=== PATIENT | female | born 1965 | race Caucasian/White ===

== ENCOUNTER 2017-06-04 11:58 | Inpatient (IN) ==
[2017-06-04 12:51] LABS: Immature Granulocytes % 0.3 %; Immature Granulocytes Absolute 0.04 #; Monocytes % 6.2 % (1.7-12.7); Red Cell Distribution Width 12.4 % (9.3-17.3)
[2017-06-04 12:55] LABS: Apearance,Urine CLEAR (Clear); Bilirubin,Urine Negative (Negative); Blood, Urine Negative (Negative); Glucose,Urine (UA) >=500 mg/dL (Negative); Hyaline Casts,Urine 1 /LPF (0-3); Ketones,Urine Negative (Negative); Mucus,Urine Occasional /LPF (Occasional); Nitrite,Urine Negative (Negative); Protein,Urine Negative; RBC,Urine <1 /HPF (0-4); Squamous Epithelial Cell,Urine Occasional /HPF (0-10); Urine Color Yellow (Yellow); Urine Specific Gravity 1.035 (1.001-1.035); Urine Urobilinogen < 2.0 EU/DL (0.2-1.0); WBC,Urine 1 /HPF (0-6)
--- NOTE | 2017-06-04 13:00 | CT Report ---
History: Right-sided hemiparesis affecting the right side of the face and right upper extremity Date: 06/04/2017 Study: CT head without contrast Comparison exam: CT head September 21, [address] sections were obtained through the head without IV contrast. Total DLP measures 1134.1 mGy*cm. This CT exam was performed using one or more the following dose reduction techniques: Automated exposure control, adjustment of the MA and/or KV according to patient size, or use of iterative reconstruction technique. The ventricles are midline in position without evidence of hydrocephalus. There is no mass or parenchymal hemorrhage. There is no gross CT evidence of acute cortical stroke. There are areas of chronic lacunar infarction involving the right putamen and posterior aspect of the right internal capsule. There is also chronic lacunar infarction in the right frontal centrum semiovale. There is no extra-axial hematoma. There is no acute abnormality of the calvarium. The partially visualized paranasal sinuses and mastoid air cells are clear. There is mild distal carotid artery calcification. Impression: No parenchymal hemorrhage. Chronic ischemic changes. No definite acute process compared to the previous study PROCEDURE INTERPRETED AT [facility] DEPARTMENT OF RADIOLOGY Final Report Signed by: Dr. Fariha Gilbert
--- NOTE | 2017-06-04 13:04 | EKG Report ---
Stationary ECG Study [facility] ER Test Date: 06/04/2017 1:02:31 PM Pat Name: BRYAN WALKER Department: Room: Gender: F Kiln Remover: : 1965 Requested by: Param Hyatt Order Number: [id number] Reading MD: ORLANDO TAYLOR Intervals [place] Rate: 83 P: 27 AL: 125 QRS: 97 QRSD: 85 T: -13 QT: 370 QTc: 410 Interpretive Statements SINUS RHYTHM BORDERLINE RIGHT AXIS DEVIATION Electronically Signed On 06-05-17 07:42:05 CDT by ORLANDO TAYLOR [email or web address]
[2017-06-04 13:06] LABS: INR 0.9; PT Patient Result 9.9 SECS
[2017-06-04 13:07] LABS: Barbiturates Screen,Urine Negative (Negative); Benzodiazepines Screen,Urine Negative (Negative); Cannabinoid Screen,Urine Negative (Negative); Opiate Screen,Urine Positive (Negative); Phencyclidine Screen,Urine Negative (Negative)
[2017-06-04 13:11] LABS: Basophils # 0.1 10*3/uL (0.0-0.2); Basophils % 0.8 % (0.0-0.8); Eosinophils # 0.1 10*3/uL (0.0-0.87); Eosinophils % 1.1 % (0.00-10.9); Hematocrit 44.3 VOL% (35.7-47.0); Lymphocytes # 3.7 10*3/uL (1.4-4.0); Lymphocytes % 31.7 % (21.3-54.2); Mean Corpuscular HGB Conc 36.1 GM/DL (32-36); Mean Corpuscular Hemoglobin 31 PG (27-34); Mean Platelet Volume 11.2 FL (9.6-12.0); Monocytes # 0.7 10*3/uL (0.11-0.8); Neutrophils # 7.1 10*3/uL (1.4-7.4); Neutrophils % 59.9 % (38.7-73.9); Platelet Count 270 T/CUMM (130-400); Red Blood Count 5.15 MC/CUMM (3.8-5.5); White Blood Count 11.8 T/CUMM (4-12)
[2017-06-04 13:18] LABS: Alanine Aminotransferase 28 U/L (13-56); Albumin 3.9 G/DL (3.4-5.0); Alkaline Phosphatase 117 U/L (45-117); Aspartate Amino Transferase 12 U/L (0-37); Bilirubin,Total < 0.39 MG/DL (0.2-1.0); Blood Urea Nitrogen 14 MG/DL (7-18); Calcium 9.4 MG/DL (8.5-10.1); Glucose 282 MG/DL (74-106); Osmolality,Calculated 285.7 MOS/KG (273-304); Potassium 4.1 MMOL/L (3.5-5.1); Sodium 138 MMOL/L (136-145); Total Protein 7.7 G/DL (6.4-8.3)
--- NOTE | 2017-06-04 13:31 | XRay Report ---
History: Cardiomegaly. Hemiparesis. History of coronary artery disease and hypertension Date: 06/04/2017 Study: Chest x-ray PA and lateral Comparison exam: March 27, 2016 The cardiomediastinal silhouette and pulmonary vasculature are unremarkable. The lungs are clear except for some minor platelike scar or subsegmental atelectasis in the right infrahilar area. There is no pleural effusion. Osseous structures are unremarkable. Impression: Minimal platelike scar or subsegmental atelectasis right infrahilar area. Otherwise unchanged PROCEDURE INTERPRETED AT [facility] DEPARTMENT OF RADIOLOGY Final Report Signed by: Dr. Fariha Gilbert
[2017-06-04] MEDS ORDERED: HEPARIN DRIP 25,000 UNITS/500 ML PREMIX IV SCH (14:00)
[2017-06-04] MEDS ORDERED: GLUCAGON 1 MG VIAL IM PRN (14:01)
[2017-06-04] MEDS ORDERED: ONDANSETRON 4 MG/2 ML VIAL IV PRN (14:01)
[2017-06-04] MEDS ORDERED: ACETAMINOPHEN 325 MG TABLET PO PRN (14:01)
[2017-06-04] MEDS ORDERED: LABETALOL 20 MG/4 ML SYRINGE IV PRN (14:01)
[2017-06-04] MEDS ORDERED: DEXTROSE 50% 25 GM/50 ML SYRINGE IV PRN (14:01)
[2017-06-04] MEDS ORDERED: HEPARIN DRIP 25,000 UNITS/500 ML PREMIX IV ONE (14:02)
[2017-06-04] MEDS ORDERED: NITROGLYCERIN SL 0.4 MG TABLET SL PRN (14:09)
[2017-06-04] MEDS: HEPARIN DRIP 25,000 UNITS/500 ML PREMIX IV SCH (15:52)
--- NOTE | 2017-06-04 15:57 | Ultrasound Report ---
Exam:US carotid duplex BI Date:06/04/2017 2:06 PM Indication: Right-sided paresthesias Color Doppler, wave form analysis, and grayscale analysis of the cervical carotid arteries was performed. There is mild smooth plaque in either carotid bulb. Waveform analysis shows proper directional flow of the cervical carotid arteries. There is antegrade flow in either vertebral artery. The distal right ICA measures 4.6 mm diameter; the left measures 4.9 mm diameter. Right Side Flow velocities centimeters per second Common carotid artery: 116 Proximal ICA:69.0 Distal ICA:88.5 External carotid artery:96.4 Vertebral artery:97.7 ICA/CCA ratio:0.8 Left SIde Flow velocities centimeters per second Common carotid artery 99 Proximal ICA:74.1 Distal ICA:92.4 External carotid artery:75.4 Vertebral artery:96.3 ICA/CCA ratio:0.9 There is 0-15% diameter reduction narrowing of either internal carotid artery using indirect NASCET criteria. Ultrasound images were captured and archived. Impression: No hemodynamically significant internal carotid artery stenosis Today studies were performed utilizing indirect NASCET criteria PROCEDURE INTERPRETED AT [facility] DEPARTMENT OF RADIOLOGY Final Report Signed by: Dr. Fariha Gilbert
[2017-06-04] MEDS: SODIUM CHLORIDE 0.9% 1,000 ML IV SCH (17:21)
--- NOTE | 2017-06-04 18:00 | Internal Med History&Physical ---
Assessment and Plan (1) Right facial numbness Status: Acute Current Visit: Yes (2) Right hand weakness Status: Acute Current Visit: Yes (3) Stroke Status: Chronic Current Visit: Yes (4) Diabetes mellitus Status: Chronic Current Visit: Yes Qualifiers: Diabetes mellitus type: type 2 (5) Essential (primary) hypertension Status: Chronic Current Visit: Yes (6) Hyperlipidemia Status: Chronic Current Visit: Yes (7) H/O: CVA (cerebrovascular accident) Status: Chronic Current Visit: Yes History of Present Illness Chief complaint: acute facial numbness History of present illness: Ms. Hay is a 52 year old female patient of Dr. Yuri Durán with history of CAD/stenting, CVA with left sided weakness, HTN, DM, dyslipidemia, who presented to ER with acute onset of right facial numbess. She also had numbness to right hand. She will have MRI brain in the morning. CT brain did not reveal acute stroke, but small old lacunar infarcts. She denies pain at this time. Home Medications Medication Instructions Recorded Confirmed Type Aspirin Tab 325 mg PO DAILY tablet 09/23/15 06/04/17 Rx HYDROcodone/ACETAMIN 10-325 [[place] 1 tablet PO Q6H PRN #30 tablet 09/23/1506/04 Rx 10-325] Insulin Aspart [NovoLOG] 10 unit SUBCUT AC LUNCH PRN 03/27/16 06/04/17 History Insulin Glargine [Lantus] 50 unit SUBCUT BEDTIME 03/27/16 06/04/17 History Linagliptin/Metformin HCl 1 each PO BID 03/27/16 06/04/17 History [Jentadueto 2.5 mg-1000 mg Tab] Nitroglycerin Sl Tab [Nitrostat] 0.4 mg SL Q5M PRN #25 tablet 04/01/16 06/04/17 Rx Allergies Allergy/AdvReac Type Severity Reaction Status Date / Time No Known Allergies Allergy Verified 09/21/15 10:27 Medical,Surgical,& Family Hx - Medical History Cardio: History of: CAD, Hypertension Neurology: History of: Cerebrovascular Accident, TIA No history of: Seizures Endocrine: History of: Diabetes Mellitus (IDDM), Dyslipidemia Respiratory: History of: Respiratory Problems (smoker) No history of: COPD Musculoskeletal: History of: Degenerative Disk Disease, Musculoskeletal Problems (osteoarthritis) - Surgical History Cardiac Surgeries: Sugical HX of: Cardiac Catheterization (angioplasty) Reproductive Surgeries: Surgical HX of;: Section, Hysterectomy - Family History Family History: Reports;: Family Heart Disease, Family Stroke Denies;: Family Diabetes - Social History Smoking Status: Current every day smoker Frequency of Alcohol Use: None Type of Drug Use: None Marital Status: Lives With:: Spouse Functional capacity: independent ambulation - Constitutional Constitutional: Present: malaise - Cardiovascular Cardiovascular: Absent: chest pain with activity - Respiratory Respiratory: Absent: dyspnea, wheezing - Gastrointestinal Gastrointestinal: Absent: constipation, nausea - Neurological Neurological: Present: headache(s) - Endocrine Endocrine: Present: fatigue Exam - Constitutional Vitals: Period Temp Pulse Resp BP Sys/Hayes Pulse Ox Last 24 Hr 97.8 F-98.1 F 73-89 18-20 138-190/74-98 95-98 General appearance: no acute distress - Head Head exam: Present: normocephalic - Eye Eye exam: Present: EOMI - Respiratory Respiratory exam: Present: clear to auscultation bilaterally - Cardiovascular Cardiovascular exam: Present: regular rate and rhythm - GI/Abdominal GI/Abdominal exam: Present: soft. 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
[2017-06-04] MEDS: DOCUSATE SODIUM 100 MG CAPSULE PO SCH (22:42)
[2017-06-04] MEDS: INSULIN GLARGINE 100 UNIT/ML SUBCUT SCH (22:43)
[2017-06-04] MEDS: HEPARIN 5,000 UNIT/1 ML VIAL IV PRN (23:02)
[2017-06-05] MEDS ORDERED: DEXTROSE 50% 25 GM/50 ML VIAL IV PRN (00:59)
[2017-06-05] MEDS ORDERED: GLUCAGON 1 MG VIAL IM PRN (00:59)
[2017-06-05] MEDS: INSULIN REGULAR 100 UNIT/ML SUBCUT SCH ×4 (06:04→21:07)
[2017-06-05 06:25] LABS: Basophils # 0.1 10*3/uL (0.0-0.2); Basophils % 0.8 % (0.0-0.8); Eosinophils # 0.2 10*3/uL (0.0-0.87); Eosinophils % 1.6 % (0.00-10.9); Hematocrit 40.7 VOL% (35.7-47.0); Hemoglobin 14.9 GM/DL (12.0-16.0); Immature Granulocytes % 0.3 %; Immature Granulocytes Absolute 0.04 #; Lymphocytes # 4.4 10*3/uL (1.4-4.0); Lymphocytes % 35.4 % (21.3-54.2); Mean Corpuscular HGB Conc 36.6 GM/DL (32-36); Mean Corpuscular Hemoglobin 32 PG (27-34); Mean Corpuscular Volume 86.6 FL (87-102); Mean Platelet Volume 11.4 FL (9.6-12.0); Monocytes # 0.8 10*3/uL (0.11-0.8); Monocytes % 6.1 % (1.7-12.7); Neutrophils # 6.9 10*3/uL (1.4-7.4); Neutrophils % 55.8 % (38.7-73.9); Platelet Count 253 T/CUMM (130-400); Red Cell Distribution Width 12.3 % (9.3-17.3); White Blood Count 12.3 T/CUMM (4-12)
[2017-06-05] MEDS: SODIUM CHLORIDE 0.9% 1,000 ML IV SCH (07:01)
[2017-06-05 07:02] LABS: Calcium 8.5 MG/DL (8.5-10.1); Osmolality,Calculated 289.8 MOS/KG (273-304); Potassium 4.4 MMOL/L (3.5-5.1)
[2017-06-05 07:07] LABS: Risk Ratio 7.77; VLDL CHOLESTEROL 134.6 MG/DL
[2017-06-05] MEDS: HEPARIN 5,000 UNIT/1 ML VIAL IV PRN ×2 (07:17→14:38)
[2017-06-05] MEDS: amLODIPine 5 MG TABLET PO SCH (09:05)
[2017-06-05] MEDS: DOCUSATE SODIUM 100 MG CAPSULE PO SCH ×2 (09:05→21:07)
[2017-06-05] MEDS: ASPIRIN 325 MG TABLET PO SCH (09:06)
[2017-06-05] MEDS: PANTOPRAZOLE 40 MG TABLET PO SCH (09:06)
--- NOTE | 2017-06-05 10:43 | Magnetic Resonance Report ---
Exam: MR head/brain wo con Date: 06/05/2017 2:06 PM Comparison: 09/21/2015, CT brain 06/04/2017 Indication: Right-sided paresthesias, history of CVA, headache Technique:[Multiple acquisitions were obtained including sagittal T1, coronal T2, and axial ADC, diffusion, FLAIR, T2, GRE, and T1 scans without contrast only. Scans were obtained on a 1.5 Jo Ann magnet.] Findings: The ventricles remain normal in size with no midline displacement. Empty sella with the cerebellar tonsils are normal in their location. 7 mm area of restricted diffusion in the left midbrain. Chronic right basal ganglia/thalamic infarcts. Progressive scattered FLAIR/T2 hyperintensities. Additional enlarged perivascular spaces which represent a normal variant. No acute findings in the orbits, temporal bones, or manzanita of [place]. 6 mm retention cyst in the floor of the right maxillary sinus. Impression: 7 mm probable acute ischemic infarction in the left midbrain with chronic right basal ganglia/thalamic infarcts. However restricted diffusion can also be seen with demyelinating disease, infectious processes, etc. Additional progressive moderate microvascular disease. The T2 hyperintensities can also be associated with demyelinating disease, vasculitis, viral illness, etc. Empty sella. 6 mm retention cyst in the floor the right maxillary sinus. Findings were discussed with patient's nurse, Leslie at 10:35 AM on 06/05/2017 Critical test results PROCEDURE INTERPRETED AT [facility] DEPARTMENT OF RADIOLOGY Final Report Signed by: Dr. Amanda Sullivan
[2017-06-05] MEDS: HEPARIN DRIP 25,000 UNITS/500 ML PREMIX IV SCH (14:49)
--- NOTE | 2017-06-05 15:09 | Neurology Consult Note ---
History of Present Illness History of present illness: 52 years old right-handed white lady with past medical history significant for hypertension, diabetes, hyperlipidemia, smoking admitted to the hospital with complaints of right facial and upper extremity numbness and tingling. Patient reported that she woke up Monday night Monday morning around 2 AM with the symptoms. Symptoms still persist. She denies any speech difficulties, walking difficulties, vision difficulties, swallowing problems. She had a history of a stroke which affected her left body in 2014 without any residual problem. CT scan of the brain reveals no acute abnormalities. MRI of the brain revealed acute infarct in the left midbrain. Carotid ultrasound is unremarkable. Lipid profile reveals triglycerides of 673 and cholesterol of 241. She was started on anticholesterol medication in 2014 after her 41 stroke but she quit taking it for some reason. Home Medications Medication Instructions Recorded Confirmed Type Aspirin Tab 325 mg PO DAILY tablet 09/23/15 06/04/17 Rx HYDROcodone/ACETAMIN 10-325 [[place] 1 tablet PO Q6H PRN #30 tablet 09/23/1506/04 Rx 10-325] Insulin Aspart [NovoLOG] 10 unit SUBCUT AC LUNCH PRN 03/27/16 06/04/17 History Insulin Glargine [Lantus] 50 unit SUBCUT BEDTIME 03/27/16 06/04/17 History Linagliptin/Metformin HCl 1 each PO BID 03/27/16 06/04/17 History [Jentadueto 2.5 mg-1000 mg Tab] Nitroglycerin Sl Tab [Nitrostat] 0.4 mg SL Q5M PRN #25 tablet 04/01/16 06/04/17 Rx Allergies Allergy/AdvReac Type Severity Reaction Status Date / Time No Known Allergies Allergy Verified 09/21/15 10:27 12 point system: reviewed and no additional remarkable complaints except as stated Medical,Surgical,& Family Hx - Medical History Cardio: History of: CAD, Hypertension Neurology: History of: Cerebrovascular Accident, TIA No history of: Seizures Endocrine: History of: Diabetes Mellitus (IDDM), Dyslipidemia Respiratory: History of: Respiratory Problems (smoker) No history of: COPD Musculoskeletal: History of: Degenerative Disk Disease, Musculoskeletal Problems (osteoarthritis) - Surgical History Cardiac Surgeries: Sugical HX of: Cardiac Catheterization (angioplasty) Reproductive Surgeries: Surgical HX of;: Section, Hysterectomy - Family History Family History: Reports;: Family Heart Disease, Family Stroke Denies;: Family Diabetes - Social History Smoking Status: Current every day smoker Frequency of Alcohol Use: None Type of Drug Use: None Exam - Constitutional Vitals: Period Temp Pulse Resp BP Sys/Hayes Pulse Ox Last 24 Hr 96.0 F-98.3 F 75-82 18-20 148-189/66-85 94-97 Exam: GENERAL: Patient is in no acute distress. NECK: Neck is supple. There is no JVD. No carotid bruits present. No thyroid masses. CVS: First and second heart sounds are normal. There is no S3 present. Regular rate and rhythm. RESPIRATORY: Lungs are clear to auscultation without any rales or rhonchi. ABDOMEN: Soft and non-tender. Bowel sounds are present. There is no hepatosplenomegaly. EXT: There is no palpable edema. Peripheral pulses are present. Skin: No rashes Central Nervous system: General: Alert, awake and Oriented x 3 Speech: Fluent Comprehension: Intact and normal Facial expressions: Normal Cranial Nerves: CN1/Olfactory: Normal CN II/ Optic: Normal, Visual Bartlett unreliable CN III, and : AUGUSTO & EOMI CN V: Normal & intact CN VII: face is symmetric CNVIII: Normal CN XI/X/XI/XII: Intact and Normal Motor: Bulk and Tone is normal. Strength in the right 5/5 Strength in the left 5/5 Sensory: Decreased for all the modalities of PP, LT and temp sense in the right face and arm Reflexes: 1+ and symmetrical Cerebellar function: Normal finger to nose and heel to cabello testing. Toes: Equivocal Gait: Normal heel to heel and toe to toe and tandem walk. Results - Labs CBC & BMP: 06/05/17 05:49 06/05/17 05:49 Assessment and Plan (1) Diabetes mellitus Status: Chronic Assessment and plan: Continue Accu-Cheks with the sliding-scale coverage Defer treatment to PCP Current Visit: Yes Qualifiers: Diabetes mellitus type: type 2 (2) Essential (primary) hypertension Status: Chronic Assessment and plan: Change Norvasc to 10 mg p.o. daily Current Visit: Yes (3) Hyperlipidemia Status: Chronic Assessment and plan: Add Lipitor 80 mg p.o. daily Current Visit: Yes (4) Acute CVA (cerebrovascular accident) Status: Acute Assessment and plan: Continue aspirin Add Plavix 75 mg daily Okay to go home when okay with PCP Current Visit: No (5) Smoker Status: Acute Assessment and plan: Counseled her regarding cessation of smoking. Current Visit: No Specialty Discharge - Follow Up or Referrals Follow up with: Nicko Miner MD [Physician] - 1 Month
--- NOTE | 2017-06-05 17:52 | ECHO Report ---
Augustina Hay Exam Date: 06/05/2017 07:40 Referring Physician: Technologist: Greta Tamayo Age: 52 Ht (in): 65 Wt (lb): 194 Gender: F Exam Location: [facility] Echo Indications: CVA, HTN, hyperlipidemia, RT. facial numbness, Rt. hand weakness BP: 148 / 66 HR: 78 Rhythm: Sinus Technical Quality: Fair IMPRESSIONS 1. This is somewhat limited echocardiogram visualization. 2. Left ventricle is normal size systolic function with ejection fraction 55-60%. 3. Other cardiac chambers are normal size. 4. There is no gross intracardiac mass or thrombus seen but this is somewhat limited study. 5. Valvular structures are overall unremarkable. MEASUREMENTS (Male / Female) Normal Values 2D ECHO LV Diastolic Diameter PLAX 4.7 cm 4.2 - 5.9 / 3.9 - 5.3 cm LV Systolic Diameter PLAX 3.1 cm LV Fractional Shortening PLAX 33.8 % IVS Diastolic Thickness 0.9 cm 0.6 - 1.0 / 0.6 - 0.9 cm LVPW Diastolic Thickness 1.0 cm 0.6 - 1.0 / 0.6 - 0.9 cm Aortic Root Diameter 2.3 cm LA Systolic Diameter LX 3.4 cm 3.0 - 4.0 / 2.7 - 3.8 cm DOPPLER TR Peak Velocity 228.0 cm/s TR Peak Gradient 20.8 mmHg FINDINGS Left Ventricle Normal left ventricular cavity size. Left ventricular ejection fraction is estimated at 55-60 %. Right Ventricle Normal right ventricular size. Right Atrium Normal right atrial size. Left Atrium Normal left atrial size. Mitral Valve Morphologically normal mitral valve. Aortic Valve The aortic valve is trileaflet and has normal motion. Tricuspid Valve Morphologically normal tricuspid valve. Trace tricuspid valve regurgitation. Tricuspid regurgitation velocities suggest a PAP of 20.8 mmHg + RAP. Pulmonic Valve Morphologically normal pulmonic valve. Pericardium No pericardial effusion. Aorta Normal size aortic root and proximal ascending aorta. Main Metz MD (Electronically Signed) Final Date: 05 June 2017 17:51
[2017-06-05] MEDS: JENTADUETO PO SCH (19:05)
[2017-06-05] MEDS ORDERED: ATORVASTATIN 80 MG TABLET PO SCH (21:00)
[2017-06-05] MEDS: INSULIN GLARGINE 100 UNIT/ML SUBCUT SCH (21:07)
--- NOTE | 2017-06-06 07:23 | Family Practice Progress Note ---
Family Practice - PN: Subj Interval history: Patient seen today. She is very alert. We have ordered an MRI which is pending. Still having numbness on the right side of her face and the distal tips of her right digits. I discussed with her the fact that she needed to stop smoking and she did voice agreement to this. Otherwise we are waiting on results and evaluation by neurology. Exam (Progress Note) - Constitutional Vitals: Period Temp Pulse Resp BP Sys/Hayes Pulse Ox Last 24 Hr 96.0 F-97.7 F 80-84 16-20 151-181/72-83 95-97 Exam: Stable hemodynamically. HEENT pupils equal reactive to light extraocular movements are intact neck is supple trachea midline. She has numbness on the right side of her head and face Cardiovascular rate regular no gallop or rub Lungs clear Abdomen soft nondistended Extremities a little tingling in her right digits otherwise normal Results - Labs CBC & BMP: 06/05/17 05:49 06/05/17 05:49 Assessment and Plan (1) Right facial numbness Status: Acute Assessment and plan: 06/05/2017: We are getting an MRI today and will have neurology evaluate Current Visit: Yes (2) H/O: CVA (cerebrovascular accident) Status: Chronic Assessment and plan: 06/05/2017: Evaluation by neurology and will follow guidelines Current Visit: Yes (3) Hyperlipidemia Status: Chronic Assessment and plan: Mars 717: Plan to address hyperlipidemia with medication Current Visit: Yes (4) Stroke Status: Chronic Assessment and plan: 06/05/2017: No residual symptoms except for the numbness in the right face. Will continue current regimen Current Visit: Yes Quality Measures - Stroke Onset of Symptoms Date: 06/04/17 Onset of Symptoms Time: 02:00 Specialty Discharge - Follow Up or Referrals Follow up with: Nicko Miner MD [Physician] - 1 Month
[2017-06-06] MEDS: INSULIN REGULAR 100 UNIT/ML SUBCUT SCH ×2 (08:02→11:30)
[2017-06-06] MEDS: JENTADUETO PO SCH ×3 (08:03→09:38)
--- NOTE | 2017-06-06 08:51 | Family Practice Progress Note ---
Family Practice - PN: Subj Interval history: 06/05/2017: Patient seen today. She is very alert. We have ordered an MRI which is pending. Still having numbness on the right side of her face and the distal tips of her right digits. I discussed with her the fact that she needed to stop smoking and she did voice agreement to this. Otherwise we are waiting on results and evaluation by neurology. 06/06/2017: Patient seen. Doing quite well except her blood sugars are up however she did not get Lantus last night. We did up her sliding scale. We will continue her Lantus and she did get a dose this morning. (note: Patient was eating sugar with her diet this morning as well as drinking regular orange juice). We discussed her watching her diabetes very closely when we discharge her. In addition she states that she definitely wants to stop smoking and will go to put her on Chantix, she is taking this before with success. Otherwise we will manage her stroke with the recommendations by neurology in which she started her on Xarelto. We will continue her medications for hypercholesterolemia which is lovastatin Exam (Progress Note) - Constitutional Vitals: Period Temp Pulse Resp BP Sys/Hayes Pulse Ox Last 24 Hr 96.9 F-97.7 F 80-84 16-20 149-181/72-83 95-97 Exam: Stable hemodynamically. HEENT pupils equal reactive to light extraocular movements are intact neck is supple trachea midline. She continues to have numbness on the right side of her head and face Cardiovascular rate regular no gallop or rub Lungs clear Abdomen soft nondistended Extremities a little tingling in her right digits otherwise normal Results - Labs CBC & BMP: 06/05/17 05:49 06/05/17 05:49 Assessment and Plan (1) Right facial numbness Status: Acute Assessment and plan: 06/05/2017: We are getting an MRI today and will have neurology evaluate Current Visit: Yes (2) H/O: CVA (cerebrovascular accident) Status: Chronic Assessment and plan: 06/05/2017: Evaluation by neurology and will follow guidelines Current Visit: Yes (3) Hyperlipidemia Status: Chronic Assessment and plan: Mars 717: Plan to address hyperlipidemia with medication Current Visit: Yes (4) Stroke Status: Chronic Assessment and plan: 06/05/2017: No residual symptoms except for the numbness in the right face. Will continue current regimen Current Visit: Yes Quality Measures - Stroke Onset of Symptoms Date: 06/04/17 Onset of Symptoms Time: 02:00 Specialty Discharge - Follow Up or Referrals Follow up with: Nicko Miner MD [Physician] - 1 Month
[2017-06-06] MEDS ORDERED: CLOPIDOGREL 75 MG TABLET PO SCH (09:00)
--- NOTE | 2017-06-06 09:08 | Discharge Summary ---
Hospital Course - Hospital Course Hospital Course: Patient seen today. She is doing well. Still has the numbness right side of her face. We are putting her on Plavix as well as were going continue on a baby aspirin. She is stable hemodynamically. We discussed her stopping smoking , we are going to put her on Chantix for this and she is to come by the clinic to get a prescription. We did continue her on her current medicines of Lantus and other p.o. anti-hyperglycemics. We will put these on accordingly. Otherwise we are going to give her a work excuse which she can come by here and get as well. I am going to see her back in 1 week - Time spent with patient Time with patient DS: Greater than 30 minutes Diagnosis - Discharge Diagnosis (1) Right facial numbness Status: Acute (2) H/O: CVA (cerebrovascular accident) Status: Chronic (3) Hyperlipidemia Status: Chronic (4) Stroke Status: Chronic Specialty Discharge - Follow Up or Referrals Follow up with: Nicko Miner MD [Physician] - 1 Month Discharge Plan - Discharge Data Disposition: Disch To Home/Self Care Condition at Discharge: Stable Discharge Diet: diabetic diet, heart healthy Activity: resume usual activities as tolerated, increase activity as tolerated Hygiene: no restrictions Weight Bearing at Discharge: weight bear as tolerated Driving: no restrictions Contact your physician if you experience:: Shortness of breath, Bleeding - Discharge Medications New Aspirin Chew Tab 81 mg PO DAILY #30 tablet Clopidogrel [Plavix] 75 mg PO DAILY #90 tablet Varenicline Tartrate [Chantix Starter Month Pack] 1 each PO DIRECTED #1 tab.ds.pk amLODIPine [Norvasc] 5 mg PO DAILY #90 tablet Atorvastatin [Lipitor] 80 mg PO BEDTIME #30 tablet Continue Insulin Glargine [Lantus] 50 unit SUBCUT BEDTIME Linagliptin/Metformin HCl [Jentadueto 2.5 mg-1000 mg Tab] 1 each PO BID Insulin Aspart [NovoLOG] 10 unit SUBCUT AC LUNCH PRN PRN Reason: Per Protocol Nitroglycerin Sl Tab [Nitrostat] 0.4 mg SL Q5M PRN #25 tablet PRN Reason: Chest Pain Discontinued Aspirin Tab 325 mg PO DAILY tablet HYDROcodone/ACETAMIN 10-325 [Brunswick 10-325] 1 tablet PO Q6H PRN #30 tablet PRN Reason: Pain - Follow Up or Referral Follow Up: Nicko Miner MD [Physician] - 1 Month Yuri Durán DO [Physician] - 1 Week - Forms/Instructions Instructions: Ischemic Stroke (DC) Exam - Constitutional Vitals: Period Temp Pulse Resp BP Sys/Hayes Pulse Ox Last 24 Hr 96.9 F-97.7 F 80-84 16-20 149-181/72-83 95-97 Discharge Results Labs on day of discharge: Labs from last 24 hours 06/06/17 06/05/17 06/05/17 07:27 19:45 16:13 Circ Anticoag PTT 55.0 H D POC Glucose 302 H 250 H 06/05/17 06/05/17 12:48 11:41 Circ Anticoag PTT 33.1 POC Glucose 345 H DS: Provider Date of admission: 06/04/17 14:01 Primary care physician: . No PCP Attending physician on admission: Yuri Durán DO Consults: 06/04/17 14:01 Consult to Physician [CONS] Routine Comment: Consulting Provider: Nicko Miner Consulting Provider Notified: No When should Consulting Provider be notified: In am Consult to Specialist Group: Neurology When should Consulting Provider be notified: Now Person Notified: KHURRAM Date Notified: 06/05/17 Time Notified: 08:51 06/04/17 14:02 Consult to Case Mgmt/Social Srvs [CONS] Routine Reason for Case Mgmt/Social Srvs: Discharge Planning Consult to Case Mgmt/Social Srvs [CONS] Routine Reason for Case Mgmt/Social Srvs: Discharge Planning Consult to Occupational Therapy [CONS] Routine Reason for Occupational Therapy: Evaluate and Treat Consult Comment: Stroke Consult to Physical Therapy [CONS] Routine Reason for Physical Therapy: Evaluate and Treat Consult Comment: stroke Discharging clinician: Yuri Durán DO
[2017-06-06] MEDS: PANTOPRAZOLE 40 MG TABLET PO SCH (09:37)
[2017-06-06] MEDS: amLODIPine 5 MG TABLET PO SCH (09:37)
[2017-06-06] MEDS: ASPIRIN 325 MG TABLET PO SCH (09:37)
[2017-06-06] MEDS: DOCUSATE SODIUM 100 MG CAPSULE PO SCH (09:37)
[2017-06-06 14:40] VITALS: BP 140/69
--- NOTE | 2017-06-06 15:34 | Neurology Progress Note ---
Neurology - PN : Subjective Interval history: Patient seems to be doing really well. However still complaining of right hand tingling and buzzing sensation. This is pretty annoying for her. I discussed in detail all the findings of MRI, cholesterol findings etc. Exam (Progress Note) - Constitutional Vitals: Period Temp Pulse Resp BP Sys/Hayes Pulse Ox Last 24 Hr 96.9 F-97.7 F 79-84 16-20 140-181/69-83 94-96 Exam: GENERAL: Patient is in no acute distress. NECK: Neck is supple. There is no JVD. No carotid bruits present. No thyroid masses. CVS: First and second heart sounds are normal. There is no S3 present. Regular rate and rhythm. RESPIRATORY: Lungs are clear to auscultation without any rales or rhonchi. ABDOMEN: Soft and non-tender. Bowel sounds are present. There is no hepatosplenomegaly. EXT: There is no palpable edema. Peripheral pulses are present. Skin: No rashes Central Nervous system: General: Alert, awake and Oriented x 3 Speech: Fluent Comprehension: Intact and normal Facial expressions: Normal Cranial Nerves: CN1/Olfactory: Normal CN II/ Optic: Normal, Visual Bartlett unreliable CN III, and : AUGUSTO & EOMI CN V: Normal & intact CN VII: face is symmetric CNVIII: Normal CN XI/X/XI/XII: Intact and Normal Motor: Bulk and Tone is normal. Strength in the right 5/5 Strength in the left 5/5 Sensory: Decreased for all the modalities of PP, LT and temp sense in the right face and arm Reflexes: 1+ and symmetrical Cerebellar function: Normal finger to nose and heel to cabello testing. Toes: Equivocal Gait: Normal heel to heel and toe to toe and tandem walk. Results - Labs CBC & BMP: 06/05/17 05:49 06/05/17 05:49 Assessment and Plan (1) Diabetes mellitus Status: Chronic Assessment and plan: Continue Accu-Cheks with the sliding-scale coverage Defer treatment to PCP Current Visit: Yes Qualifiers: Diabetes mellitus type: type 2 (2) Essential (primary) hypertension Status: Chronic Assessment and plan: Change Norvasc to 10 mg p.o. daily Current Visit: Yes (3) Hyperlipidemia Status: Chronic Assessment and plan: Add Lipitor 80 mg p.o. daily Current Visit: Yes (4) Acute CVA (cerebrovascular accident) Status: Acute Assessment and plan: Continue aspirin Add Plavix 75 mg daily Okay to go home when okay with PCP Add Elavil 25 mg p.o. at bedtime Current Visit: No (5) Smoker Status: Acute Assessment and plan: Counseled her regarding cessation of smoking. Current Visit: No Quality Measures - Stroke Onset of Symptoms Date: 06/04/17 Onset of Symptoms Time: 02:00 Specialty Discharge - Follow Up or Referrals Follow up with: Nicko Miner MD [Physician] - 07/12/17 10:00 am (BRING YOUR INSURANCE CARDS, MEDICINES,BE PREPARED TO PAY YOUR BALANCE AT DR MINER'S OFFICE) Yuri Durán DO [Physician] - 06/13/17 1:15 pm
[2017-06-06] MEDS ORDERED: INSULIN LISPRO 100 UNIT/ML SUBCUT PRN (16:30)
[2017-06-06] MEDS ORDERED: AMITRIPTYLINE 25 MG TABLET PO SCH (21:00)
== END 2017-06-06 16:18 | disposition home or self-care (01) | DRG 66 ==
LOC: N.ED 11:58 → N.EDINP 14:01 → N.4E 15:33
PROVIDERS: ADMIT Family Medicine; ATTEND Family Medicine